=== PATIENT | female | born 1960 | race American Indian/Alaskan Native ===

== ENCOUNTER 2017-07-09 15:53 | Emergency (ER) | payer OTHER ==
[2017-07-09 16:25] VITALS: BP 148/96
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
[2017-07-09] MEDS ORDERED: MOTRIN PO ONE (20:34)
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
== END 2017-07-09 20:54 | disposition home or self-care (01) ==
LOC: ED 15:53
DX: S13.4XXA Sprain of ligaments of cervical spine, initial encounter (principal); S39.012A Strain of muscle, fascia and tendon of lower back, initial encounter; I10 Essential (primary) hypertension; F17.200 Nicotine dependence, unspecified, uncomplicated; V49.49XA Driver injured in collision with other motor vehicles in traffic accident, initial encounter; Y93.89 Activity, other specified; Y92.89 Other specified places as the place of occurrence of the external cause; Y99.8 Other external cause status
CPT/HCPCS: 72040